=== PATIENT | male | born 1955 | race Caucasian/White ===

== ENCOUNTER → 2016-12-20 | Day surgery (SDC) | payer OTHER ==
--- NOTE | 2016-12-14 15:03 | Pre-Procedure Note/Attestation ---
Pre-Procedure Note/Attestation Complete Prior to Procedure Planned Procedure: left Procedure Narrative: 1. Microsuspension laryngoscopy 2. Injection of left vocal fold with Prolaryn Plus implant Indications for Procedure Pre-Operative Diagnosis: Paralyzed left vocal fold. Attestation I attest that I discussed the nature of the procedure; its benefits; risks and complications; and alternatives (and the risks and benefits of such alternatives ), prior to the procedure, with the patient (or the patient's legal sales representative printing paper). I attest that, if there was a reasonable possibility of needing a blood transfusion, the patient (or the patient's legal sales representative printing paper) was given the [place] [employer] standardized written summary, pursuant to the Norm [place] Blood Safety Act ([place] Health and Safety Code # 1645, as amended). I attest that I re-evaluated the patient just prior to the surgery and that there has been no change in the patient's H&P. BETH SPICER Dec 14, 2016 15:03
--- NOTE | 2016-12-14 22:17 | Pre-op HX & Phy Repo 2 SIG ---
DATE OF ADMISSION: 12/20/2016 INDICATION FOR SURGERY: The patient is a 61-year-old male, who has a lateralized left vocal cord following a cervical neck surgery elsewhere a couple months ago. His voice is not coming back. He has spoken with his surgeon, who did the procedure, mentioned that he was not aware of any damage and his voice was fine the first day, but then he got sick and may have been an issue. PAST MEDICAL HISTORY: Significant for tinnitus, essential hypertension, and hypercholesterolemia. In addition, he has had orthopedic back issues. PAST SURGICAL HISTORY: Significant for lumbar fusion, total colectomy, colonoscopies, trigger finger surgery, an appendectomy, and most recently cervical neck. MEDICATIONS: Aspirin, atorvastatin, Atacand, Celebrex, hydrobromide, finasteride, fish oil, niacin Cialis p.r.n., and Ambien. SOCIAL HISTORY: He is not a smoker. He is . Four children. Denies issues with alcohol and drugs. 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 He does exercise. He takes supplements on a regular basis and is nonverbal. FAMILY HISTORY: Hypertension, colon cancer, diabetes, and lung cancer. PHYSICAL EXAMINATION: VITAL SIGNS: The patient is 6 feet 2 inches and 210 pounds. BMI 26.82. His blood pressure 120/80, temperature 98.6 degrees, pulse 74, and respiratory rate 13. HEENT: Head is normocephalic. Eyes, PERRLA. EOMI. Lips, tongue, pharynx, and neck are all normal. Fiberoptic bronchoscopy, which was done on 12/02/2016 and also on 11/11/2016 showed the cord was lateralized without any improvement in his voice since that time. CHEST: Clear to auscultation and percussion. HEART: Normal S1 and S2. No murmur, bruit, gallop, or rub. EXTREMITIES: Grossly normal GENITOURINARY: Not done as not indicated and is followed by his primary care doctor on a regular basis. ASSESSMENT: Lateralized true vocal fold, probably neurapraxia from the cervical neck surgery. PLAN: 1. He is scheduled for a microsuspension laryngoscopy injection of Prolaryn Plus injectable implant into the left cord to medialize it. He understands this will not result in his previous voice, but it would strengthen his voice hopefully at least 50%, if not more. 2. He is going to supply EKG laboratories prior to the procedure. If not, we will get them when he shows up at the hospital. Ahsan Redmond M.D. DR: KATIE JOB#: [id number] CC:
[~2016-12-20] VITALS: Ht 188 cm; Wt 90.7 kg
[2016-12-20] VITALS (13 sets, daily range): BP systolic 128–142; BP diastolic 67–84
[~2016-12-20] MED LIST: AMBIEN10 M1 ORAL; ANDROGEL1.25 GM TP; ASPIRIN325 MG ORAL; ATORVASTATIN CA40 MG ORAL; AZELASTINE137 MCG/0. NS; Alfentanil 2ml Inj ONE; CANDESARTAN CIL32 MG PO; CELEBREX200 MG ORAL; CELEXA20 MG ORAL; Dexamethasone 4mg/ml vial IVP ONE; FISH OIL 1,4001 EAC1 PO; FLECTOR1 EACH TP; GLUCOSAMINE &1 EAC2 PO; HYDROmorphone 1mg/ml Carpuject SUBQ PRN; LIDOCAINE700 M1 TDERMAL; LR 1000ml 1,000 ML IV SCH; LR 1000ml 1,000 ML IVLG SCH; LR 1000ml ONE; Metoclopramide 10mg/2ml Inj IVP PRN; Midazolam 2mg/2ml Inj ONE; NIACIN500 M1 PO; NS Irrig 1000ml ONE; Norco 5mg/325mg tab ORAL PRN; PROPECIA1 MG PO; Propofol 10mg/ml 20ml IV ONE; Sterile Water Irrig 1000ml IRRIG ONE; VALIUM10 MG ORAL; VIAGRA25 MG ORAL; VICODIN ES 7.51 EAC1 ORAL; VITAMIN C500 M1 ORAL; VITAMIN D1000 UNI1 ORAL; VITAMIN E400 UNI5 PO; [UNRECOGNIZED DRUG - OTHER] IMPLANT ONE; ceFAZolin 1gm/50ml Premix 50 ML IV ONE
--- NOTE | 2016-12-20 08:18 | Anethesia Preoperative Eval ---
Anesthesia Pre-op PMH/ROS General Date of Evaluation: Dec 20, 2016 Time of Evaluation: 07:20 Anesthesiologist: Ricardo ASA Score: ASA 2 Mallampati Score Class I : Soft palate, uvula, fauces, pillars visible Class II: Soft palate, uvula, fauces visible Class III: Soft palate, base of uvula visible Class IV: Only hard plate visible Mallampati Classification: Class II Surgeon: Ruy Diagnosis: Vocal cord paralysis left Surgical Procedure: Direct laryngoscopy, vocal cord injection Allergies: Coded Allergies: No Known Allergies (Unverified , 12/14/16) Medications: see eMAR Past Medical History Cardiovascular: Reports: HTN, Denies: CAD, DE, arrhythmia, other, valve dz Pulmonary: Denies: COPD, HUGO, asthma, other Gastrointestinal/Genitourinary: Denies: CRI, ESRD, GERD, other Neurologic/Psychiatric: Denies: CVA, TIA, dementia, depression/anxiety, other Endocrine: Denies: DM, hypothyroidism, other, steroids HEENT: Denies: [place] (L), [place] (R), cataract (L), cataract (R), glaucoma, other Hematology/Immune: Denies: DVT, anemia, bleeding disorder, other Musculoskeletal/Integumentary: Denies: DDD, DJD, OA, RA, edema, other PMH Narrative: HTN, hypercholesterolemia PSxH Narrative: ACDF, lumbar fusion Anesthesia Pre-op Phys. Exam Physician Exam Last Vital Signs Date Time Temp Pulse Resp B/P Pulse Ox O2 Delivery O2 Flow Rate FiO2 12/20/16 06:42 96.9 54 20 132/81 98 Room Air Constitutional: NAD Neurologic: CN 2-12 intact Cardiovascular: RRR, no M/R/G Respiratory: CTA Gastrointestinal: S/NT/ND Airway Exam Mallampati Score: Class II MO: full ROM: full Teeth: intact Anesthesia Pre-op A/P Risk Assessment & Plan Assessment: Vocal cord paralysis Plan: GETA Status Change Before Surgery: No Pre-Antibiotics Drug: Ancef Given Within 1 Hr of Incision: Yes Time Given: 07:40 MICHAEL VALLEJO M.D. Dec 20, 2016 08:18
--- NOTE | 2016-12-20 08:19 | Immediate Post-Op Evaluation ---
Immediate Post-Op Evalulation Immediate Post-Op Evalulation Procedure: Direct laryngoscopy, left vocal cord injection Date of Evaluation: Dec 20, 2016 Time of Evaluation: 08:20 IV Fluids: 550 Blood Pressure Systolic: 142 Blood Pressure Diastolic: 75 Pulse Rate: 67 Respiratory Rate: 14 O2 Sat by Pulse Oximetry: 95 Temperature (Fahrenheit): 97.1 Pain Score (1-10): 0 Nausea: No Vomiting: No Complications No complication Patient Status: awake, patent, extubated, none Hydration Status: adequate Drug: Ancef Given Within 1 Hr of Incision: Yes Time Given: 07:40 MICHAEL VALLEJO M.D. Dec 20, 2016 08:19
--- NOTE | 2016-12-20 08:21 | 48 Hour Post Anesthesia Eval ---
Post Anesthesia Evaluation Procedure: Direct laryngoscopy, left vocal cord injection Date of Evaluation: Dec 20, 2016 Time of Evaluation: 08:45 Blood Pressure Systolic: 146 0: 77 Pulse Rate: 65 Respiratory Rate: 15 O2 Sat by Pulse Oximetry: 97 Airway: patent Nausea: No Vomiting: No Pain Intensity: 0 Hydration Status: adequate Cardiopulmonary Status: Stable Mental Status/LOC: patient returned to baseline Follow-up Care/Observations: As per surgery Post-Anesthesia Complications: No anesthetic complication Follow-up care needed: N/A MICHAEL VALLEJO M.D. Dec 20, 2016 08:21
--- NOTE | 2016-12-20 08:30 | Brief Operative Note ---
Immediate Post Operative Note Operative Note Pre-op Diagnosis: Paralyzed left vocal fold. Procedure: Microsuspension laryngoscopy and injection of Prolaryn Plus to left lateral TVF Post-op Diagnosis: same as pre-op Surgeon: Beth Redmond MD Pigment Presser: none Additional Surgeons: none Anesthesiologist: Ricardo Anesthesia: general Specimen: none Complications: none Condition: stable Estimated Blood Loss: minimal Drains: none Packing: none Implant(s) used?: Yes - BETH Lui Dec 20, 2016 08:30
[2016-12-20] MEDS: Hydromorphone 0.5mg/0.5ml inj IVP PRN ×4 (08:40→09:34)
--- NOTE | 2016-12-20 08:44 | Discharge Instructions ---
Discharge Instructions Discharge Instructions Diet: regular Resume Normal Activity?: No Activity: light activity Pneumonia Vaccine: pt refused vaccine Influenza Vaccine (Aug to Jan): pt refused vaccine Follow Up Orders pt has printed instructions No whispering or yelling Limited regular talking next 1 week Return to Work/School on: Dec 23, 2016 For Surgical Patients May shower: Yes Contact your physician for: bleeding, pain, tenderness, redness, swelling, yellowish discharge in the op. site For Congestive Heart Failure Reminder Report to your physician any weight gain of 5 pounds or more in one week. BETH SPICER Dec 20, 2016 08:44
--- NOTE | 2016-12-20 10:07 | Operative Note - Dictated ---
DATE OF OPERATION: 12/20/2016 SURGEON: Ahsan Redmond M.D. SLICING MACHINE TENDER: None. ANESTHESIOLOGIST: Norm Silva M.D. ANESTHESIA: Oral endotracheal anesthesia. INDICATION FOR SURGERY: The patient is status post cervical neck procedure with the paralyzed left true vocal fold few months ago. He is not making progress. PREOPERATIVE DIAGNOSIS: The patient is status post cervical neck procedure with the paralyzed left true vocal fold few months ago. He is not making progress. POSTOPERATIVE DIAGNOSIS: The patient is status post cervical neck procedure with the paralyzed left true vocal fold few months ago. He is not making progress. FINDINGS: The patient is status post cervical neck procedure with the paralyzed left true vocal fold few months ago. He is not making progress. PROCEDURE: 1. Microsuspension laryngoscopy. 2. Prolaryn plus filler injection. TECHNIQUE: Time-out was performed. All agreed as to the procedure. The patient was intubated with a 6.5 tube, which is little smaller than normal on purpose. Dedo scope was placed in suspension. I then proceeded to check the areytnoids which appeared to be intact. I then proceeded to inject the lateral thyroarytenoid muscle with 0.4 cubic centimeters of Prolaryn plus filler. The cord was brought more to the midline. It was suctioned and smoothed out with a suction. The Dedo scope was then removed. Please note, there was a tooth guard used on the maxillary teeth. When that was removed teeth were all normal. EBL: Zero. COUNTS: None. DRAINS: None. Sponge and needle count was correct. The patient was awake, alert, and stable in the operating room prior to transfer to recovery room. 20 minutes later, I saw the patient in the recovery room. He could count to 10 and say his name, which was louder than it was preop. We went through similar procedure prior to surgery, his voice was only a whisper. Ahsan Redmond M.D. DR: IRMA JOB#: [id number] CC: JUAN ALBERTO
== END | disposition home or self-care (01) ==
LOC: SUR 06:02
DX: J38.01 Paralysis of vocal cords and larynx, unilateral (principal); I10 Essential (primary) hypertension; E78.00 Pure hypercholesterolemia, unspecified; H93.19 Tinnitus, unspecified ear; Z79.82 Long term (current) use of aspirin; Z79.899 Other long term (current) drug therapy; Z90.49 Acquired absence of other specified parts of digestive tract
CPT/HCPCS: 31571; J0690; J1100; J1170; J2250; J2405; J2704; J3490; J7120; 94003; 94150